=== PATIENT | male | born 1940 | race Caucasian/White ===

== ENCOUNTER 2019-01-10 13:00 | Outpatient (RCR) | payer MEDICARE, OTHER | END 2019-01-11 | LOC: OT 13:00 | PROVIDERS: ATTEND Surgery Surgery of the Hand | DX: G56.01 Carpal tunnel syndrome, right upper limb (principal) | CPT/HCPCS: 97139 ==

== ENCOUNTER 2019-01-13 11:52 | Outpatient (RCR) | payer MEDICARE | END 2019-02-11 | LOC: OT 11:52 | PROVIDERS: ATTEND Surgery Surgery of the Hand | DX: G56.01 Carpal tunnel syndrome, right upper limb (principal); M25.531 Pain in right wrist; M25.641 Stiffness of right hand, not elsewhere classified; R53.1 Weakness; R20.9 Unspecified disturbances of skin sensation | CPT/HCPCS: 97139 ==

== ENCOUNTER 2019-03-11 14:38 | Outpatient (RCR) | payer MEDICARE, OTHER | END 2019-03-13 | LOC: OT 14:38 | PROVIDERS: ATTEND Surgery Surgery of the Hand | DX: G56.02 Carpal tunnel syndrome, left upper limb (principal); M25.532 Pain in left wrist; M25.632 Stiffness of left wrist, not elsewhere classified; R53.1 Weakness ==

== ENCOUNTER 2019-03-25 10:47 | Outpatient (RCR) | payer MEDICARE | END 2019-04-13 | LOC: OT 10:47 | PROVIDERS: ATTEND Surgery Surgery of the Hand | DX: G56.02 Carpal tunnel syndrome, left upper limb (principal); M25.532 Pain in left wrist; M25.632 Stiffness of left wrist, not elsewhere classified; R53.1 Weakness ==